=== PATIENT | female | born 1980 | race Caucasian/White ===

== ENCOUNTER 2017-03-17 19:18 | Emergency (ER) | payer BC ==
[~2017-03-17] VITALS: Ht 170.2 cm; Wt 79.4 kg
[2017-03-17] MEDS ORDERED: IV NORMAL SALINE 1,000ML 1,000 ML ONE (19:28)
[2017-03-17] MEDS ORDERED: methylPREDNISolone SOD SUCC PF 125 MG/2 ML VIAL. IV ONE (19:30)
[2017-03-17] MEDS ORDERED: diphenhydrAMINE 50 MG/ML VIAL IV ONE (19:30)
[2017-03-17] MEDS ORDERED: CEPH-264 PO (20:56)
[2017-03-17] MEDS ORDERED: EPIN0.3A4 IJ (20:56)
--- NOTE | 2017-03-17 20:56 | PHYS DOC ---
Past History Past Medical History: UTI Past Surgical History: Appendectomy, Cholecystectomy, Alcohol Use: Occasionally Drug Use: None Adult General Chief Complaint Chief Complaint: ALLERGIC REACTION HPI HPI Patient is a 36-year-old female who presents here today complaining of a tingling sensation in her throat and tingling to her lips with increased cough that started after starting Bactrim earlier today after being diagnosed in urgent care center. With a urinary tract infection. Patient denies any other symptomatology. Patient has a nausea vomiting diarrhea abdominal pain. Patient denies any prior history of allergies to any medications. Patient has any rash or itching. Patient's ER physical exam was unremarkable. Patient had no wheezing rales or rhonchi. Patient no stridor. Patient's oropharynx is clear. Patient's uvula was midline without any apparent edema. Patient's skin was normal without any rashes. Patient's ER hospital course was significant for receiving 50 of IV Benadryl and 125 of IV Solu-Medrol. Upon reevaluation at 8:50 PM the patient reports she feels significantly improved. She reports the sensation in her throat is currently resolved and tingling around her lips is also resolved completely. Review of systems: Constitutional: Denies fever or chills Eyes: Denies change in visual acuity, redness, or eye pain HENT: Denies nasal congestion or sore throat All other review systems are negative except as documented in the history of present illness portion. Physical exam: Constitutional: Well developed, well nourished, no acute distress, non-toxic appearance. HENT: Normocephalic, atraumatic, bilateral external ears normal, oropharynx moist, no oral exudates, nose normal. Eyes: PERRLA, EOMI, conjunctiva normal, no discharge. Neck: Normal range of motion, no tenderness, supple, no stridor. Cardiovascular:Heart rate regular rhythm Lungs & Thorax: Bilateral breath sounds clear to auscultation Abdomen: Bowel sounds normal, soft, no tenderness, no masses, no pulsatile masses. Skin: Warm, dry, no erythema, no rash. Back: No tenderness, no CVA tenderness. Extremities: No tenderness, no cyanosis, no clubbing, ROM intact, no edema. Neurologic: Alert and oriented X 3, normal motor function, normal sensory function, no focal deficits noted. Psychologic: Affect normal, judgement normal, mood normal. Assessment and plan This is a 36-year-old female who appears to have had a mild allergic reaction to Bactrim. Patient's been instructed to inform all healthcare providers that she has a sulfa allergy. Patient will be discharged home with a prescription for Benadryl, cimetidine, and an EpiPen in case her symptoms should ever worsen. Patient has been instructed in the visualization of her EpiPen and the need to come to the hospital immediately if it needs to be utilized. Patient will be given a prescription for Keflex instead of her Bactrim and will be instructed to stop all Bactrim. Current Medications Current Medications Current Medications Medications (Trade) Dose Ordered Sig/Steve Start Time Stop Time Status Last Admin Dose Admin Diphenhydramine HCl (Benadryl) 50 mg 1X ONCE 03/17/17 19:30 03/17/17 19:38 DC 03/17/17 19:30 50 MG Methylprednisolone Sodium Succinate (SOLU-Medrol 125MG VIAL) 125 mg 1X ONCE 03/17/17 19:30 03/17/17 19:38 DC 03/17/17 19:30 125 MG Sodium Chloride 1,000 ml @ As Directed STK-MED ONCE 03/17/17 19:28 03/17/17 19:29 DC Allergies Allergies Allergies Coded Allergies Type Severity Reaction Last Updated Verified sulfamethoxazole Allergy Unknown 03/17/17 Yes trimethoprim Allergy Unknown 03/17/17 Yes Current Patient Data Vital Signs Vital Signs Date Time Temp Pulse Resp B/P (MAP) Pulse Ox O2 Delivery O2 Flow Rate FiO2 03/17/17 19:18 83 22 99 Room Air EKG EKG [] Radiology/Procedures Radiology/Procedures [] Course & Med Decision Making Course & Med Decision Making Pertinent Labs and Imaging studies reviewed. (See chart for details) [] Dragon Disclaimer Dragon Disclaimer This chart was dictated in whole or in part using Voice Recognition software in a busy, high-work load, and often noisy Emergency Department environment. It may contain unintended and wholly unrecognized errors or omissions. Departure Departure: Impression: Primary Impression: Allergy to sulfa drugs Additional Impression: Urinary tract infection Disposition: HOME, SELF-CARE Condition: IMPROVED Referrals: PCP,NO (PCP) Patient Instructions: Drug Allergy, Urinary Tract Infection Additional Instructions: Please informed all healthcare providers that you have a sulfa allergy He'll be given a prescription for EpiPen to keep on hand in case she ever have a severe reaction or if you are having a hard time breathing. If this ever happens and you need to use her EpiPen shot you must go to the nearest ER. Scripts Prednisone (PREDNISONE) 50 Mg Tablet 1 TAB PO DAILY, #5 TAB Prov: ROSALVA BETTS MD 03/17/17 Diphenhydramine Hcl (BENADRYL) 25 Mg Capsule 2 CAP PO Q6HRS for 3 Days, #24 CAP 2 Refills Prov: ROSALVA BETTS MD 03/17/17 Epinephrine (EPIPEN 2-KARLY) 0.3 Mg/0.3 Ml Auto.injct 0.3 MG IJ use as directed, #1 SYR Prov: ROSALVA BETTS MD 03/17/17 Cephalexin (KEFLEX) 500 Mg Capsule 1 CAP PO TID, #30 CAP Prov: ROSALVA BETTS MD 03/17/17 Problem Qualifiers Additional Impression: Urinary tract infection Urinary tract infection type: site unspecified Hematuria presence: without hematuria Qualified Codes: N39.0 - Urinary tract infection, site not specified ROSALVA BETTS MD Mar 17, 2017 20:56
[2017-03-17] MEDS ORDERED: PRED50TA PO (21:01)
[2017-03-17] MEDS ORDERED: DIPH25CA58 PO (21:01)
[2017-03-17 21:03] VITALS: BP 123/77
== END 2017-03-17 21:20 | disposition home or self-care (01) ==
LOC: ER 19:18
DX: N39.0 Urinary tract infection, site not specified (principal); T37.0X5A Adverse effect of sulfonamides, initial encounter; Z88.1 Allergy status to other antibiotic agents; Y92.89 Other specified places as the place of occurrence of the external cause
CPT/HCPCS: 96374; 96375; 99284; J1200; J2930